=== PATIENT | male | born 1960 | race Caucasian/White ===

== ENCOUNTER 2021-05-18 10:56 | Day surgery (SDC) | payer BC, OTHER ==
[~2021-05-18 10:56] MED LIST: Lactated Ringers 1,000 ML IV SCH; Lidocaine 1%/Sod Bicarbonate in NS 8.4% 1 ML Syringe IDERM PRN; Sodium Chloride 0.9% 10 ML Syringe FLUSH PRN; Sodium Chloride 0.9% 10 ML Syringe FLUSH SCH
[2021-05-18] MEDS ORDERED: Lidocaine 1% 4 ML ONE (11:10)
[2021-05-18] MEDS ORDERED: Propofol 200 MG/20 ML SDV ONE (11:10)
[2021-05-18] MEDS ORDERED: Midazolam 1 MG/ML 2 ML SDV ONE (11:10)
[2021-05-18] MEDS ORDERED: fentaNYL 100 MCG/2 ML SDV ONE (11:10)
[2021-05-18 14:19] VITALS: BP 113/70; PULSE 78
== END 2021-05-18 14:20 | disposition home or self-care (01) ==
LOC: JD.SDS 10:56
PROVIDERS: ATTEND Surgery
DX: D12.5 Benign neoplasm of sigmoid colon (principal); D12.4 Benign neoplasm of descending colon; K31.9 Disease of stomach and duodenum, unspecified; K29.70 Gastritis, unspecified, without bleeding; I10 Essential (primary) hypertension; H54.7 Unspecified visual loss; E66.9 Obesity, unspecified; Z68.39 Body mass index [BMI] 39.0-39.9, adult; Z90.49 Acquired absence of other specified parts of digestive tract; Z79.899 Other long term (current) drug therapy; Z98.890 Other specified postprocedural states; Z83.79 Family history of other diseases of the digestive system; Z87.19 Personal history of other diseases of the digestive system
CPT/HCPCS: 43239; 45380; 45385; J2250; J2704; J3010; J7120; 00813